=== PATIENT | female | born 1970 | race Caucasian/White ===

== ENCOUNTER 2019-12-11 18:31 | Emergency (ER) | payer OTHER ==
--- NOTE | 2019-12-11 18:53 | ER Document Report ---
ED Medical Screen (RME) - General Chief Complaint: Rib Pain Stated Complaint: RIB PAIN Time Seen by Provider: 12/11/19 18:34 Mode of Arrival: Ambulatory Information source: Patient Notes: 49-year-old female presents to ED for complaint of pain to the left rib area. She states she called an urgent care and they told her that it could be mono or spleen due to the fact that her swelling in the area of the left lower lateral ribs. She states that she had flulike symptoms from November 27- cough and a lot of body aches and fever she has not had any of the flulike symptoms since the but she has had a continued cough. She has had no fevers since the . She is alert oriented respirations regular nonlabored at this time. She does have tenderness to the left lower ribs does not have abdominal tenderness. She states she does smoke 3 to 4 cigarettes a day occasionally drinks no drugs. She states she does not have any past medical or surgical history. I have greeted and performed a rapid initial assessment of this patient. A comprehensive ED assessment and evaluation of the patient, analysis of test results and completion of medical decision making process will be conducted by an additional ED providers. Physical Exam - Vital signs Vitals: Temp Pulse Resp BP Pulse Ox 98.5 F 79 18 124/63 100 12/11/19 18:46 12/11/19 18:46 12/11/19 18:46 12/11/19 18:46 12/11/19 18:46 Course - Vital Signs Vital signs: Temp Pulse Resp BP Pulse Ox 98.5 F 79 18 124/63 100 12/11/19 18:46 12/11/19 18:46 12/11/19 18:46 12/11/19 18:46 12/11/19 18:46
[2019-12-11 19:21] LABS: APPEARANCE,URINE CLEAR; BILIRUBIN,URINE NEGATIVE (NEGATIVE); COLOR,URINE STRAW; GLUCOSE, URINE NEGATIVE (NEGATIVE); KETONES,URINE NEGATIVE (NEGATIVE); PROTEIN,URINE NEGATIVE (NEGATIVE); URINE SPECIFIC GRAVITY 1.005; UROBILINOGEN,URINE NEGATIVE mg/dL (<2.0)
--- NOTE | 2019-12-11 19:33 | RADIOLOGY REPORT (SQ) ---
EXAM DESCRIPTION: RIBS LEFT W/PA CHEST COMPLETED DATE/TIME: 12/11/2019 6:14 pm REASON FOR STUDY: Pain worse with deep breath, lower anterior chest pain. COMPARISON: None. TECHNIQUE: Frontal view of the chest and additional views of the left ribs acquired. NUMBER OF VIEWS: Three view. LIMITATIONS: None. FINDINGS: FRONTAL CXR: No pneumothorax. No pleural effusion. No atelectasis or infiltrates. RIBS: No displaced rib fractures. No lytic or blastic bony lesions. OTHER: No other significant finding. IMPRESSION: NO PNEUMOTHORAX. NO DISPLACED RIB FRACTURES. COMMENT: SITE OF TRAUMA/COMPLAINT MARKED/STAMP COMPLETED: NA TECHNICAL DOCUMENTATION: JOB ID: [id number] [email or web address] All Rights Reserved Reading location - IP/workstation name: [email or web address]
[2019-12-11 19:39] LABS: ABSOLUTE BASOPHILS # (AUTO) 0.1 10^3/uL (0.0-0.2); ABSOLUTE EOSINOPHILS # (AUTO) 0.2 10^3/uL (0.0-0.6); ABSOLUTE LYMPHOCYTES (AUTO) 1.7 10^3/uL (0.5-4.7); ABSOLUTE MONOCYTES (AUTO) 0.5 10^3/uL (0.1-1.4); BASOPHILS % (AUTO) 1.4 % (0-2); EOSINOPHILS % (AUTO) 2.4 % (0-6); HEMATOCRIT 36.3 % (36.0-47.0); MEAN CORPUSCULAR HEMOGLOBIN 33.7 pg (27.0-33.4); MEAN CORPUSCULAR HGB CONC 35.7 g/dL (32.0-36.0); MEAN CORPUSCULAR VOLUME 95 fl (80-97); MONOCYTES % (AUTO) 8.2 % (3-13); PLATELET COUNT 270 10^3/uL (150-450); RED BLOOD COUNT 3.84 10^6/uL (3.72-5.28); RED CELL DISTRIBUTION WIDTH 13.1 % (11.5-14.0); TOTAL CELLS COUNTED % (AUTO) 100 %; WHITE BLOOD COUNT 6.5 10^3/uL (4.0-10.5)
[2019-12-11 19:56] LABS: ALBUMIN 4.1 g/dL (3.5-5.0); ALKALINE PHOSPHATASE 57 U/L (38-126); ANION GAP 5 (5-19); ASPARTATE AMINO TRANSFERASE 22 U/L (14-36); BILIRUBIN,TOTAL 0.3 mg/dL (0.2-1.3); BLOOD UREA NITROGEN 13 mg/dL (7-20); CALCIUM 8.9 mg/dL (8.4-10.2); CARBON DIOXIDE 27 mmol/L (22-30); CHLORIDE 104 mmol/L (98-107); GLUCOSE 85 mg/dL (75-110); TOTAL PROTEIN 6.8 g/dL (6.3-8.2)
--- NOTE | 2019-12-11 20:12 | ER Document Report ---
ED General - General Chief Complaint: Sore Throat Stated Complaint: RIB PAIN Time Seen by Provider: 12/11/19 18:34 Mode of Arrival: Ambulatory Notes: CHIEF COMPLAINT: Left rib pain for 5 days HPI: 49-year-old female presenting to the emergency department complaining of left rib pain over the last 5 days. Reports a swollen area along the left lateral chest wall that hurts with movement or palpation. Denies abdominal pain. Denies nausea vomiting. Denies dysuria. Denies use of control or estrogen. Denies chest pain other than the discomfort in the ribs. Patient has taken no medications for the symptoms. ROS: See HPI - all other systems were reviewed and are otherwise negative Constitutional: no fever Eyes: no drainage, no blurred vision ENT: no runny nose, no sore throat Cardiovascular: positive chest wall pain Resp: no SOB, no cough GI: no vomiting, no diarrhea, no abdominal pain : no dysuria Integumentary: no rash Allergy: no hives Musculoskeletal: no extremity pain or swelling Neurological: no numbness/tingling, no weakness MEDICATIONS: I agree with the patient medications as charted by the RN. ALLERGIES: I agree with the allergies as charted by the RN. PAST MEDICAL HISTORY/PAST SURGICAL HISTORY: Reviewed and agree as charted by RN. SOCIAL HISTORY: Reviewed and agree as charted by RN. FAMILY HISTORY: No significant familial comorbid conditions directly related to patient complaint EXAM: Reviewed vital signs as charted by RN. CONSTITUTIONAL: Alert and oriented and responds appropriately to questions. Well-appearing; well-nourished HEAD: Normocephalic; atraumatic EYES: PERRL; Conjunctivae clear, sclerae non-icteric ENT: normal nose; no rhinorrhea; moist mucous membranes; pharynx without lesions noted, no uvula edema or deviation, no tonsillar hypertrophy, phonation normal NECK: Supple without meningismus; non-tender; no cervical lymphadenopathy, no masses CARD: RRR; no murmurs, no clicks, no rubs, no gallops; symmetric distal pulses RESP: Normal chest excursion without splinting or tachypnea; breath sounds clear and equal bilaterally; no wheezes, no rhonchi, no rales, pulse oximetry 97% on room air not hypoxic. There is spasm in the left lower lateral chest wall with tenderness on palpation of this region. No visible rash ABD/GI: Normal bowel sounds; non-distended; soft, non-tender, no rebound, no guarding; no palpable organomegaly or masses. BACK: The back appears normal and is non-tender to palpation, there is no CVA tenderness EXT: Normal ROM in all joints; non-tender to palpation; no cyanosis, no effusions, no edema SKIN: Normal color for age and race; warm; dry; good turgor; no acute lesions noted NEURO: Moves all extremities equally; Motor and sensory function intact PSYCH: The patient's mood and manner are appropriate. Grooming and personal hygiene are appropriate. MDM: 49-year-old female with discomfort in the left lateral chest wall. It is reproducible in nature. Slight spasm of the muscles is present. Low suspicion for ACS, low suspicion for PE. She has no abdominal pain on exam, no visible rash suggesting shingles although we did discuss this. At this time patient declines any medication except for Motrin. Her lab work ordered through the triage process is negative including Monospot. - Related Data Allergies/Adverse Reactions: No Known Allergies Allergy (Unverified 12/11/19 20:06) Past Medical History - General Information source: Patient - Social History Smoking Status: Current Every Day Smoker Chew tobacco use (# tins/day): No Frequency of alcohol use: Social Drug Abuse: None Family History: Reviewed & Not Pertinent Patient has suicidal ideation: No Patient has homicidal ideation: No Physical Exam - Vital signs Vitals: Temp Pulse Resp BP Pulse Ox 98.5 F 79 18 124/63 100 12/11/19 18:46 12/11/19 18:46 12/11/19 18:46 12/11/19 18:46 12/11/19 18:46 Course - Vital Signs Vital signs: Temp Pulse Resp BP Pulse Ox 98.5 F 79 18 124/63 100 12/11/19 18:46 12/11/19 18:46 12/11/19 18:46 12/11/19 18:46 12/11/19 18:46 - Laboratory Result Diagrams: 12/11/19 19:26 12/11/19 19:26 Laboratory results interpreted by me: 12/11/19 12/11/19 19:26 19:26 MCH 33.7 H Sodium 136.4 L Discharge - Discharge Clinical Impression: Chest wall pain Condition: Stable Disposition: HOME, SELF-CARE Additional Instructions: Take ibuprofen consistently for discomfort. Follow-up with your primary care provider for reevaluation of symptoms call for appointment. If you notice a rash through the involved area follow-up with your PCP to start on antivirals as this is likely shingles Prescriptions: Ibuprofen [Motrin 600 Mg Tablet] 600 mg PO Q6H #15 tablet Referrals: ANSON WINTERS MD [ACTIVE STAFF] - Follow up as needed
[2019-12-11 20:23] VITALS: BP 97/50
== END 2019-12-11 20:22 | disposition home or self-care (01) ==
LOC: ER 18:31
DX: R07.89 Other chest pain (principal); J02.9 Acute pharyngitis, unspecified; R07.81 Pleurodynia; F17.200 Nicotine dependence, unspecified, uncomplicated
CPT/HCPCS: 36415; 80053; 81001; 85025; 86308; 99283